=== PATIENT | male | born 1980 | race Caucasian/White ===

== ENCOUNTER 2024-06-16 12:54 | Emergency (ER) | payer SELFPAY ==
[~2024-06-16] VITALS: Ht 180.3 cm; Wt 77.1 kg
[2024-06-16] MEDS ORDERED: HYDHCL25 PO (13:23)
[2024-06-16] MEDS ORDERED: PEPCID40 MG PO (13:23)
== END 2024-06-16 13:29 | disposition home or self-care (01) ==
LOC: ER 12:54
DX: F41.9 Anxiety disorder, unspecified (principal); R10.12 Left upper quadrant pain; Z79.899 Other long term (current) drug therapy
CPT/HCPCS: 99283